=== PATIENT | male | born 1990 | race Caucasian/White ===

== ENCOUNTER 2024-10-26 18:32 | Emergency (ER) | payer OTHER, SELFPAY ==
[2024-10-26 18:31] VITALS: BP 119/84; PULSE 110; RESP 16; TEMP 36.6; O2SAT 97
--- OUTSIDE RECORDS SUMMARY | 2024-10-26 18:34 | XMS_ITS | Clinical Summary ---
Author Organization [facility] Address [address] [place] [address] Phone Care Team Providers Care Construction Field Engineer Name Role Phone Murray Kellogg MD Primary Care Provider [phone] Allergies No known active allergies Medications No known medications Social History Tobacco Use Types Packs/Day Years Used Date Smoking Tobacco: Some Days Tobacco Cessation:Ready to Q uit: Not Asked; Counseling Given: Not Answered Alcohol Use Standard Drinks/Week Comments No 0 (1 standard drink = 0.6 oz pur e alcohol) Sex and Gender Information Value Date Recorded Sex Assigned at Not on file Legal Sex Male 11:47 PM CDT Gender Identity Not on file Sexual Orientation Not on file Last Filed Vital Signs Vital Sign Reading Time Taken Comments Blood Pressure 114/70 10/12/2023 9:00 AM CDT Pulse 98 10/12/2023 9:00 AM CDT Temperature 36.9 C (98.5 F) 10/12/2023 9:00 AM CDT Respiratory Rate 16 10/12/2023 9:00 AM CDT Oxygen Saturation 100% 10/12/2023 9:00 AM CDT Inhaled Oxygen Concentration - - Weight 95.3 kg (210 lb 1.6 oz) 10/12/2023 8:03 A M CDT Height 177.8 cm (5' 10 ) 10/12/2023 8:03 AM CDT Body Mass Index 30.15 10/12/2023 8:03 AM CDT Plan of Treatment Health Maintenance Due Date Last Done Comments Hepatitis C Virus (HCV) Screening 1992 TdaP Immunization 1992 Pneumococcal Immunization Combined (1 of 2 - PCV) 01/12/2011 Influenza Immunization (#1) 2024 SARS-COV-2 Immunization (2023-25 season) 2024 Respiratory Syncytial Virus (RSV) Immunization (Adult) (1 - 1-dose 75+ series) 01/12/2067 DTaP/Tdap/Td Immunization Discontinued 1996, 09/04/1993, 1992, Additional history exists Hepatitis B Immunization Completed 002, 11/30/2001, 10/31/2001 Meningococcal Immunization (ACWY) Aged Out No longer eligible based on patient's age to complete this topic Rotavirus Immunization Aged Out No lo nger eligible based on patient's age to complete this topic Insurance MED[employer]ID [employer] Care Teams Construction Field Engineer Relationship Specialty Start Date End Date Murray Kellogg MD [address] [place] [address] PCP - General Pediatrics 04/17/16
--- NOTE | 2024-10-26 18:48 | ED.WOUNDLAC ---
HPI - Wound/Laceration General Chief Complaint: Wound/Laceration Stated Complaint: right hand first finger swelling Time Seen by Provider: 10/26/24 18:47 Source: patient Mode of arrival: ambulatory Limitations: no limitations History of Present Illness HPI narrative: Patient is a 34-year-old male with a right index pointer finger infection that started off as a blister and patient used a needle from home to poke it and open up the area. Pus has now formed and redness around half of the distal digit is present. Onset (ago): day(s) ( Two) Location: other ( pointer finger right hand) Place: home Patient tetanus UTD: No Context: sharp object use Associated symptoms: pain Treatments prior to arrival: other ( none) Related Data Allergies Allergy/AdvReac Type Severity Reaction Status Date / Time No Known Allergies Allergy Verified 10/26/24 19:19 Review of Systems Review of Systems: All systems reviewed & are unremarkable except as noted in HPI and below Constitutional: Constitutional: Reports no additional constitutional complaints Eyes: Eyes: Reports no additional eye complaints ENT: Reports system reviewed and no additional complaints, except as documented Cardiovascular: Cardiovascular: Reports no additional cardiovascular complaints Respiratory: Respiratory: Reports no additional respiratory complaints Gastrointestinal: Gastrointestinal: Reports no additional gastrointestinal complaints Genitourinary: Genitourinary: Reports no additional male genitourinary complaints Musculoskeletal: Musculoskeletal: Reports no additional musculoskeletal complaints Integumentary/Breasts: Skin/Breast: Reports system reviewed and no additional complaints, except as docu Neurologic: Reports system reviewed and no additional complaints, except as documented Psychiatric: Psychiatric: Reports no additional psychiatric complaints Endocrine: Endocrine: Reports no additional endocrine complaints Hematologic/Lymphatic: Hematologic/Lymphatic: Reports no additional hematologic/lymphatic complaints Allergic/Immunologic: Allergic/Immunologic: Reports no additional allergic/immunologic complaints Exam Const: General: healthy appearing Nutritional Appearance: well nourished Orientation/consciousness: patient oriented x3 Limitations: no limitations HENMT: Head: normal to inspection Ears: external ears normal Face/Nose/Sinus: Normal external nose present Eyes: Conjunctivae: conjunctivae normal Pupils: Equal, round and reactive pupils present EOM: EOMs intact bilaterally Neck: Neck: normal visual inspection Chest: Chest palpation & inspection: normal inspection of the chest Resp: Effort & Inspection: normal respiratory effort and not labored Auscultation: clear to auscultation bilaterally and no crackles Cardio: Rate: regular rate Rhythm: regular rhythm Heart sounds: no murmurs GI: Inspection: non-distended GI Palp: Yes Soft to palpation and No Tenderness to palpation present (GI) Auscultation: normal bowel sounds Back/Spine/Pelvis: Back: no CVA tenderness Skin: General skin exam: normal color Rashes: no rashes Wounds: wound noted Other: right hand pointer finger index finger mid finger at the DIP all the way to the distal tip is red circumferentially but there is neurovascular intact distally with normal cap refill and color Neuro: General: patient oriented x3 Cranial nerves: Yes Nystagmus not present Speech: normal speech Gait exam (Neuro): Normal gait present Extrem: General: normal to inspection Psych: Mental Status: mental status grossly normal Affect: normal affect Attitude: cooperative Course Vital Signs Vital signs: Vital Signs Temperature 36.6 C 10/26/24 18:31 Pulse Rate 110 H 10/26/24 18:31 Respiratory Rate 16 10/26/24 18:31 Blood Pressure 119/84 10/26/24 18:31 Pulse Oximetry 97 10/26/24 18:31 Oxygen Delivery Room Air 10/26/24 18:31 Temperature 36.6 C 10/26/24 18:31 Pulse Rate 110 H 10/26/24 18:31 Respiratory Rate 16 10/26/24 18:31 Blood Pressure 119/84 10/26/24 18:31 Pulse Oximetry 97 10/26/24 18:31 Oxygen Delivery Room Air 10/26/24 18:31 MDM - Wound/Laceration MDM Narrative Medical decision making narrative: patient is a 34-year-old male with right hand pointer finger index finger skin infection of cellulitis. We will give him a tetanus booster and Rocephin IM at this time. He will go home with clindamycin. We will do a wound culture. Discharge Plan Discharge Clinical Impression: Cellulitis of index finger Qualifiers: Laterality: right Qualified Code(s): L03.011 - Cellulitis of right finger Patient Disposition: Home, Self-Care Condition: Stable Instructions: Antibiotic Form, Cellulitis (ED) Patient Language: Mongolian Prescriptions: New clindamycin HCl 300 mg capsule 300 mg PO TID 10 Days Qty: 30 0RF Follow-up/Referrals: Murray Kellogg MD [Primary Care Provider] - Time of Disposition: 19:18
--- NOTE | 2024-10-26 18:57 | PC.NURSE ---
pt report to ximena stone
--- OUTSIDE RECORDS SUMMARY | 2024-10-26 19:11 | XMS_ITS | Clinical Summary ---
Author Organization [facility] Address [address] [place] [address] Phone Care Team Providers Care Water Commissioner Name Role Phone Murray Kellogg MD Primary Care Provider [phone] Allergies No known active allergies Medications No [...] Insurance [employer] Care Teams Water Commissioner Relationship Specialty Start Date End Date Murray Kellogg MD [address] [place] [address] PCP - General Pediatrics 04/17/16
[2024-10-26] MEDS: TETANUS,DIPHTHERIA,AC PERTUSSIS ADULT 0.5 ML (ADACEL) IM (19:38)
[2024-10-26] MEDS: cefTRIAXone 1 GM, LIDOCAINE 1% LOCAL INJ 2.1 ML IM (19:39)
[2024-10-26 20:09] VITALS: BP 117/82; PULSE 90; RESP 16; TEMP 36.7; O2SAT 98
--- NOTE | 2024-10-28 12:47 | PC.NURSE ---
Preliminary finger culture report; no white blood cells seen, many gram positive cocci in clusters, waiting for final culture and sensitivity per erp Dr. Guidry
--- NOTE | 2024-10-29 13:03 | PC.NURSE ---
PRELIMINARY ANAEROBIC CULTURE RESULTS: GRAM POSITIVE COCCI IN CLUSTERS, NO ANAEROBES ISOLATED TO DATE, CONTINUING INCUBATION PRELIMINARY AEROBIC CULTURE RESULTS: ISOLATE 1: HEAVY GROWTH OF STAPHYLOCOCCUS AUREUS PER DR SORTO, TO AWAIT C&S
== END 2024-10-26 20:09 | disposition home or self-care (01) ==
PROVIDERS: Emergency Provider Emergency Medicine; PCP Family Medicine
DX: L03.011 Cellulitis of right finger (principal); Z23 Encounter for immunization
CPT/HCPCS: 87070; 87075; 87181; 87205; 90471; 90715; 96372; 99283; J0696; J2003